=== PATIENT | male | born 1980 | race Hispanic/Latino ===

== ENCOUNTER → 2018-11-14 | Day surgery (SDC) | payer BC ==
[~2018-11-14] MED LIST: Lactated Ringer's 500 ML IV ONE; Midazolam 2 MG/2 ML VIAL ONE; Propofol 10 mg/ml Inj (20 ML) ONE
[2018-11-14 09:57] VITALS: BMI 34.9
[2018-11-14 11:16] VITALS: RESP 17; TEMP 97.2
[2018-11-14 11:33] VITALS: BP 113/73; PULSE 87; O2SAT 97
== END | disposition home or self-care (01) ==
LOC: H.ENDO 09:34
PROVIDERS: ATTEND Internal Medicine Gastroenterology
DX: K31.89 Other diseases of stomach and duodenum (principal); E66.9 Obesity, unspecified; F17.200 Nicotine dependence, unspecified, uncomplicated; K44.9 Diaphragmatic hernia without obstruction or gangrene; K21.9 Gastro-esophageal reflux disease without esophagitis; K29.80 Duodenitis without bleeding; K29.50 Unspecified chronic gastritis without bleeding
CPT/HCPCS: 43239; 88305; J2001; J2250; J2704; J7120